=== PATIENT | male | born 2000 | race Caucasian/White ===

== ENCOUNTER 2019-02-13 18:57 | Emergency (ER) | payer OTHER ==
[~2019-02-13] VITALS: Ht 185.4 cm; Wt 81.6 kg
[2019-02-13 19:40] VITALS: BP 135/70
--- NOTE | 2019-02-13 20:48 | PHYS DOC ---
Past Medical History Past Medical History: No Pertinent History (DIYA RAIN APRN) Past Surgical History: No Surgical History (DIYA RAIN APRN) Alcohol Use: None Drug Use: None (DIYA RAIN APRN) Attending Signature I have participated in the care of this patient and I have reviewed and agree with all pertinent clinical information above including history, exam, and recommendations. (LUISANA RUBALCAVA MD) Adult General Chief Complaint Chief Complaint: HEAD INJURY/TRAUMA HPI HPI Patient is a 18 year old male who presents with headache. Patient reports he had been snowboarding earlier today, when he had fallen and struck his head. Reports he remembers he was snowboarding, next thing he remembers he was waking up in the medical tent. States he does not know how long he was out for, reports that no body in the medical tent told him how long he was out for at that time. Denies any nausea, denies any vomiting, denies any focal weakness, however does report he continues to have some discomfort in the side of his head. States he has not taken any medications for the headache, reports headache is not too bad urine is concerned because he had gotten knocked out. (DIYA RAIN APRN) Review of Systems Review of Systems Constitutional: Denies fever or chills [] Eyes: Denies change in visual acuity, redness, or eye pain [] GI: Denies abdominal pain, nausea, vomiting, bloody stools or diarrhea [] : Denies dysuria or hematuria [] Musculoskeletal: Denies back pain or joint pain [] Integument: Denies rash or skin lesions [] Neurologic: Reports headache, denies focal weakness or sensory changes [] Endocrine: Denies polyuria or polydipsia [] All other systems were reviewed and found to be within normal limits, except as documented in this note. (DIYA RAIN APRN) Allergies Allergies Allergies Coded Allergies Type Severity Reaction Last Updated Verified No Known Drug Allergies 02/13/19 No (LUISANA RUBALCAVA MD) Physical Exam Physical Exam Constitutional: Well developed, well nourished, no acute distress, non-toxic appearance. [] HENT: Normocephalic, atraumatic, bilateral external ears normal, oropharynx moist, no oral exudates, nose normal. Contusion noted to right congregation. [] Eyes: PERRLA, EOMI, conjunctiva normal, no discharge. [] Neck: Normal range of motion, no tenderness, supple, no stridor. [] Cardiovascular:Heart rate regular rhythm, no murmur [] Lungs & Thorax: Bilateral breath sounds clear to auscultation [] Abdomen: Bowel sounds normal, soft, no tenderness, no masses, no pulsatile masses. [] Skin: Warm, dry, no erythema, no rash. [] Back: No tenderness, no CVA tenderness. [] Extremities: No tenderness, no cyanosis, no clubbing, ROM intact, no edema. [] Neurologic: Alert and oriented X 3, normal motor function, normal sensory function, no focal deficits noted. [] Psychologic: Affect normal, judgement normal, mood normal. [] (DIYA RAIN APRN) Current Patient Data Vital Signs Vital Signs Date Time Temp Pulse Resp B/P (MAP) Pulse Ox O2 Delivery O2 Flow Rate FiO2 02/13/19 19:40 98.0 100 17 135/70 (91) 97 Room Air 98.0 (LUISANA RUBALCAVA MD) EKG EKG [] (DIYA RAIN APRN) Radiology/Procedures Radiology/Procedures IMPRESSION: 1. Maxillary sinusitis. 2. No intracranial hemorrhage or acute finding noted. PQRS Compliance Statement: One or more of the following individualized dose reduction techniques were utilized for this examination: 1. Automated exposure control 2. Adjustment of the mA and/or kV according to patient size 3. Use of iterative reconstruction technique Electronically signed by: Santino Shah MD (02/13/2019 9:22 PM) [facility] [] (DIYA RAIN APRN) Course & Med Decision Making Course & Med Decision Making Pertinent Labs and Imaging studies reviewed. (See chart for details) []Discussed findings with patient and family member without any acute process noted today. Recommend continued Tylenol, appropriate dosing. Continue ice. Marlon id high brain stimulating activities for the next 1-2 weeks to help limits post concussion symptoms (DIYA RAIN APRN) Dragon Disclaimer Dragon Disclaimer This electronic medical record was generated, in whole or in part, using a voice recognition dictation system. (DIYA RAIN APRN) Departure Departure Impression: Primary Impression: Concussion Disposition: HOME, SELF-CARE Condition: STABLE Referrals: RODRICK SIMS MD (PCP) Patient Instructions: Concussion-SportsMed Additional Instructions: As we discussed, continue Tylenol or ibuprofen for discomfort. There was no abnormality noted on your CAT scan today. Again as we discussed, avoid any high brain stimulating activities for the next 1-2 weeks. This means avoiding games, videos, or physical activities that may lead to further head pain. Problem Qualifiers Primary Impression: Concussion Encounter type: initial encounter Loss of consciousness presence/duration: with LOC of unspecified duration Qualified Codes: S06.0X9A - Concussion with loss of consciousness of unspecified duration, initial encounter DIYA RAIN APRN Feb 13, 2019 20:48 LUISANA RUBALCAVA MD Feb 14, 2019 07:54
--- NOTE | 2019-02-13 21:25 | RAD ---
CT brain without contrast. HISTORY: Fall, head injury CT scan of brain was done without contrast. A skull fracture is not identified. There is mucosal thickening bilaterally in the maxillary sinuses. There is no intracranial hemorrhage or subdural hematoma. Lateral ventricles are normal in size. There is no mass or shift of the midline. An acute CVA is not identified. IMPRESSION: 1. Maxillary sinusitis. 2. No intracranial hemorrhage or acute finding noted. PQRS Compliance Statement: One or more of the following individualized dose reduction techniques were utilized for this examination: 1. Automated exposure control 2. Adjustment of the mA and/or kV according to patient size 3. Use of iterative reconstruction technique Electronically signed by: Santino Shah MD (02/13/2019 9:22 PM) [facility]
== END 2019-02-13 21:46 | disposition home or self-care (01) ==
LOC: ER 18:57
DX: S06.0X9A Concussion with loss of consciousness of unspecified duration, initial encounter (principal); W18.09XA Striking against other object with subsequent fall, initial encounter; Y93.29 Activity, other involving ice and snow; Y92.89 Other specified places as the place of occurrence of the external cause; Y99.8 Other external cause status
CPT/HCPCS: 70450; 99284-25